=== PATIENT | female | born 1985 | race Two or more races ===

== ENCOUNTER 2016-08-21 23:54 | Emergency (ER) | payer MEDICAID ==
[~2016-08-21] VITALS: Ht 165.1 cm; Wt 48.5 kg
[2016-08-22] MEDS ORDERED: NKM (00:01)
[2016-08-22 00:25] VITALS: BP 102/4
--- NOTE | 2016-08-22 04:00 | Emergency Room Report ---
History of Present Illness General Chief Complaint: Headache Source: Patient Present Illness HPI 31-year-old female presents to ED for evaluation. States she is having a headache x1 month. Localized behind the left eye, throbbing, 7/10. Denies any photophobia. Denies any nausea or vomiting. Denies neck stiffness. No other aggravating relieving factors. Denies any other associated symptoms Allergies: Coded Allergies: No Known Allergies (Unverified , 08/22/16) Patient History Past Medical History: none Past Surgical History: none Pertinent Family History: none Social History: Denies: alcohol use, drug use, smoking Last Menstrual Period: July Now: No Immunizations: UTD Reviewed Nursing Documentation: PMH: Agreed, PSxH: Agreed Nursing Documentation-PMH Past Medical History: No Stated History Review of Systems All Other Systems: negative except mentioned in HPI Physical Exam Vital Signs Date Time Temp Pulse Resp B/P Pulse Ox O2 Delivery O2 Flow Rate FiO2 08/21/16 23:56 98.1 63 18 102/4 98 Room Air Sp02 EP Interpretation: reviewed, normal General Appearance: no apparent distress, alert, GCS 15, non-toxic Head: normocephalic, atraumatic Eyes: bilateral eye PERRL, bilateral eye normal inspection ENT: hearing grossly normal, normal pharynx, no angioedema, normal voice Neck: full range of motion, supple, no meningismus, supple/symm/no masses Respiratory: chest non-tender, lungs clear, normal breath sounds, speaking full sentences Cardiovascular #1: regular rate, rhythm, no edema Cardiovascular #2: 2+ carotid (R), 2+ carotid (L), 2+ radial (R), 2+ radial (L) , 2+ dorsalis pedis (R), 2+ dorsalis pedis (L) Gastrointestinal: normal bowel sounds, non tender, soft, non-distended, no guarding, no rebound Rectal: deferred Genitourinary: normal inspection, no CVA tenderness Musculoskeletal: back normal, gait/station normal, normal range of motion, non- tender Neurologic: alert, oriented x3, responsive, motor strength/tone normal, sensory intact, speech normal Psychiatric: judgement/insight normal, memory normal, mood/affect normal, no suicidal/homicidal ideation Reflexes: 3+ bicep (R), 3+ bicep (L), 3+ tricep (R), 3+ tricep (L), 3+ knee (R) , 3+ knee (L) Skin: normal color, no rash, warm/dry, well hydrated Lymphatic: no adenopathy Medical Decision Making Diagnostic Impression: Primary Impression: Headache Qualified Codes: R51 - Headache ER Course Hospital Course 31-year-old female presents ED complaining of headache x1 month. No photophobia , no nausea or vomiting Differential diagnoses include: tension headache, migraine, dehydration, intracranial bleed Clinical course Patient placed on stretcher. After initial history , physical exam reveals a young female in no acute distress. Visual acuity intact. Pupils equally reactive. Extraocular movements intact. No focal neurological deficits. Motor strength equal bilaterally Patient wants to know exactly what is wrong with her. I explained to the patient that headaches are multifactorial and can be due to multiple things including dehydration, UTI, neurological. I explained to her workup can include labs, IV hydration with consideration of CT Patient states that if these tests yield nothing she is "wasting" her time. Patient states she does not want any testing at this time and walks out of the ER Diagnosis-headache Patient eloped from ER Last Vital Signs Date Time Temp Pulse Resp B/P Pulse Ox O2 Delivery O2 Flow Rate FiO2 08/22/16 00:25 98.1 18 102/4 98 Room Air 08/21/16 23:56 63 Status: unchanged Disposition: ELOPED Condition: Stable Referrals: NOT CHOSEN KASIE/,REFERRING AMANDA MASTERS M.D. Aug 22, 2016 04:00
== END 2016-08-22 00:25 | disposition left against medical advice (07) ==
LOC: EMR 08-22 00:08
DX: R51 Headache (principal)
CPT/HCPCS: 99282